=== PATIENT | male | born 1955 | race Caucasian/White ===

== ENCOUNTER 2024-05-15 06:54 | Emergency (ER) | payer OTHER, SELFPAY ==
[2024-05-15 08:01] VITALS: BMI 45.0
--- NOTE | 2024-05-15 08:21 | ED.GENMED ---
History of Present Illness
General
Chief Complaint: Nose Bleed
Time Seen by Provider: 05/15/24 07:40
History of Present Illness
History of Present Illness:
68-year-old male presents to the emergency department due to frequent nosebleeds occurring over the past several days. Bleeding has resolved upon arrival. He is on Xarelto due to A-fib.
Past History
Past History
ED Past Medical History: Cancer (Prostate cancer 2009), HTN and Hypercholesterolemia
ED Past Surgical History: Urological (Prostatectomy 2009)
Social History
Tobacco: Non-smoker
Alcohol: Occasional
Drug: None
Personal:
Living: with family
Employment: Employed
Family History
Family History: Hypertension; Negative CAD or Sudden
Review of Systems
Review of Systems
Allergies reviewed?: Yes
All Other Systems: ROS reviewed and negative except as documented in HPI and ROS
Phy Exam
Physical Exam
Physical Exam:
GEN: Well appearing, NAD, WDWN
HEENT: Oral mucosa moist, no scleral icterus. No evidence of recent bleeding to bilateral naris, no evidence of oropharyngeal bleeding
Cardiac: Regular rate
Lung: No respiratory distress, no tachypnea
MSK: No gross deformity or injuries
Skin: Good color, no pallor or jaundice, no rashes
Neuro: AO x3, moves all extremities freely
Psych: Calm, cooperative
Course
Orders/Labs/Results
Orders:
Orders
05/15/24 09:46
Tranexamic Acid 1,000 mg INH NOW STA
05/15/24 09:54
Tranexamic Acid 1,000 mg .ROUTE .STK-MED ONE
Vital Signs
Initial and Last Documented VS:
Initial Vital Signs
Temp Pulse Resp Pulse Ox
98.7 F 86 16 96
05/15/24 06:55 05/15/24 06:55 05/15/24 06:55 05/15/24 06:55
Last Documented Vital Signs
Temp Pulse Resp BP Pulse Ox
98.6 F 72 16 147/83 96
05/15/24 10:00 05/15/24 10:00 05/15/24 10:00 05/15/24 10:00 05/15/24 10:00
Procedures
Nosebleed
Drug treatment: Epinephrine and Tranexamic Acid
Treatment: Merocel packing
Post treatment bleeding: none- good control
MDM/Problems Addressed
MDM/Problems Addressed:
Initial exam unrevealing of any acute bleeding however upon ambulating the patient began bleeding. Again there was no evidence of anterior nosebleed, initially we placed a 4.5 cm Rhino Rocket balloon packing however this did not control bleeding
adequately thus this was replaced for a 10 cm Merisel infused with tranexamic acid and epinephrine. Good control was seen at this point.Patient will be advised to follow-up with the ENT as an outpatient on Saturday and hold his Eliquis for the next
72 hours
*Critical Care Note
Total Time (30-74mins, 75-104mins- exclusive of procedures): Not Applicable
ED Attending Note
-
Portions of this chart may have been created with voice recognition software.� Occasional wrong word or��sound alike� substitutions may have occurred due to the inherent limitations of voice recognition software.
Discharge Plan
Departure
Patient Disposition: Home (Routine Discharge)
Date of Disposition: 05/15/24
Time of Disposition: 08:21
Patient with high blood pressure during this ER visit?: No
Discharge Problem:
Epistaxis
Instructions: Nosebleeds (DC)
Prescriptions:
No Action
escitalopram oxalate 10 MG tablet
10 mg PO DAILY
cholecalciferol (vitamin D3) [Vitamin D3] 25 mcg (1,000 unit) Tablet
25 mcg PO DAILY
fenofibrate micronized 130 mg Capsule
130 mg PO DAILY
Xarelto 20 MG tablet
20 mg PO QPM
metoprolol tartrate 50 mg Tablet
50 mg PO BID Qty: 60 3RF
acetaminophen 325 mg Tablet
650 mg PO Q4HPRN PRN (Reason: mild pain, fever, headache) Qty: 0 0RF
losartan-hydrochlorothiazide 100-25 mg Tablet
1 tab PO DAILY
spironolactone 25 mg Tablet
25 mg PO DAILY
Referrals:
Erik Villanueva MD [Active] - As needed
Dennis Levin MD [Family Provider] -
Activity Restrictions/Additional Instructions:
Apply a liberal amount of Neosporin or Vaseline to both in her nostrils before going to sleep. Using [id number] saline nasal spray 3 times daily to minimize chance of nosebleed
If symptoms recur but are controllable follow-up with ENT, if bleeding is not controlled follow-up in the ER
Interventions
Interventions:
*Risk Screen - Suicide Last Done: 05/15/24 06:55
*General Assessment Last Done: 05/15/24 06:55
*Neglect/Abuse Screening Last Done: 05/15/24 06:55
*ED- Fall Risk Assessment Last Done: 05/15/24 07:15
*ED COVID-19 Vaccine History Last Done: 05/15/24 07:15
*Nursing Disposition Last Done: 05/15/24 10:28
ED-EENT Assessment Last Done: 05/15/24 07:18
Discharge Date and Time
Discharge Date/Time: 05/15/24 10:29
Print Language: [id number]
[2024-05-15 08:26] VITALS: BP 158/95
[2024-05-15 10:00] VITALS: BP 147/83
== END 2024-05-15 10:29 | disposition home or self-care (01) ==
LOC: EMR 06:54
PROVIDERS: EMERGENCY PHYSICIAN Emergency Medicine; FAMILY PHYSICIAN Family Medicine Adult Medicine
DX: R04.0 Epistaxis (principal)
CPT/HCPCS: 99282; 30901

== ENCOUNTER → 2024-07-13 07:55 | Outpatient (REF) | payer MEDICARE, OTHER, SELFPAY | LOC: RCS 07:55 | PROVIDERS: ATTENDING PHYSICIAN Internal Medicine Cardiovascular Disease; FAMILY PHYSICIAN Family Medicine Adult Medicine | DX: I48.0 Paroxysmal atrial fibrillation (principal); Z95.3 Presence of xenogenic heart valve; I10 Essential (primary) hypertension; G47.33 Obstructive sleep apnea (adult) (pediatric); E66.01 Morbid (severe) obesity due to excess calories; E78.2 Mixed hyperlipidemia; I35.0 Nonrheumatic aortic (valve) stenosis | CPT/HCPCS: 93306; Q9950 ==